=== PATIENT | female | born 1995 | race Caucasian/White ===

== ENCOUNTER 2017-01-28 06:26 | Day surgery (SDC) | payer BC, OTHER ==
[2017-01-26 11:46] LABS: HEMATOCRIT 42.4 % (36.0-47.0); HEMOGLOBIN 14.4 g/dL (12.0-15.5); HGB HCT DIFFERENCE 0.8; MEAN CORPUSCULAR HEMOGLOBIN 30.5 pg (27.0-33.4); MEAN CORPUSCULAR VOLUME 90 fl (80-97); RED BLOOD COUNT 4.73 10^6/uL (3.72-5.28); RED CELL DISTRIBUTION WIDTH 12.7 % (11.5-14.0); WHITE BLOOD COUNT 8.3 10^3/uL (4.0-10.5)
[2017-01-26 11:50] LABS: APPEARANCE,URINE SLIGHTLY-CLOUDY; BILIRUBIN,URINE NEGATIVE (NEGATIVE); GLUCOSE, URINE NEGATIVE (NEGATIVE); KETONES,URINE NEGATIVE (NEGATIVE); LEUKOCYTE ESTERASE,URINE NEGATIVE (NEGATIVE); NITRITE,URINE NEGATIVE (NEGATIVE); PROTEIN,URINE NEGATIVE (NEGATIVE); UROBILINOGEN,URINE NEGATIVE mg/dL (<2.0)
[~2017-01-28 06:26] MED LIST: LACTATED RINGERS 1000 ML IV PRN; LIDOCAINE 0.5% INJ-PF (5 MG/ML) 50 ML SDV SUBCUT PRN
[2017-01-28] MEDS ORDERED: FENTANYL CITRATE INJ/PF 100 MCG/2 ML AMPUL ONE (08:03)
[2017-01-28] MEDS ORDERED: LIDOCAINE 2% INJ-PF (20 MG/ML) 10 ML AMPUL ONE (08:03)
[2017-01-28] MEDS ORDERED: ONDANSETRON HCL INJ/PF 4 MG/2 ML SDV ONE (08:04)
[2017-01-28] MEDS ORDERED: MIDAZOLAM 2 MG/2 ML INJ ONE (08:04)
[2017-01-28] MEDS ORDERED: PROPOFOL INJ 200 MG/20 ML VIAL IV ONE (08:04)
[2017-01-28] MEDS ORDERED: DIPHENHYDRAMINE HCL 50 MG/ML VIAL IV PRN (08:30)
[2017-01-28] MEDS ORDERED: MEPERIDINE HCL/PF INJ 25 MG/1 ML DISP.SYRIN IV PRN (08:30)
[2017-01-28] MEDS ORDERED: MORPHINE SULFATE 10 MG/ML INJ IV PRN (08:30)
[2017-01-28] MEDS ORDERED: FENTANYL CITRATE INJ/PF 100 MCG/2 ML AMPUL IV PRN ×3 (08:30)
[2017-01-28] MEDS ORDERED: ONDANSETRON HCL INJ/PF 4 MG/2 ML SDV IV PRN (08:30)
[2017-01-28] MEDS ORDERED: OXYCODONE-ACETAMINOPHEN 5-325 MG TABLET PO PRN ×4 (08:30→08:53)
[2017-01-28] MEDS ORDERED: PROMETHAZINE HCL INJ 25 MG/1 ML VIAL IV PRN ×2 (08:30)
--- NOTE | 2017-01-28 08:46 | Operative Report ---
Operative Report DATE OF SURGERY: 01/28/17 PREOPERATIVE DIAGNOSIS: Vaginal septum POSTOPERATIVE DIAGNOSIS: Same OPERATION: Excision of vaginal septum SURGEON: ARELIS WESTBROOK ANESTHESIA: GA TISSUE REMOVED OR ALTERED: Vaginal septum COMPLICATIONS: None ESTIMATED BLOOD LOSS: 5 cc INTRAOPERATIVE FINDINGS: Torn vaginal septum attached at 12:00 just below the urethra and at 6:00 approximately 2 cm up into the vagina PROCEDURE: Patient was seen in the office and was unable to tolerate much of an exam because of a torn vaginal septum. She wished to have it removed and wished it to be done in the operating room because of her anxiety and fear of discomfort with the procedure. Patient was taken to the OR and placed in supine position. Anesthesia was induced. She is placed in dorsolithotomy position using Leobardo stirrups. Her perineum and vagina were prepared and draped in sterile fashion. Exam shows a septum attached proximally at 6:00 2 cm up in the vagina and also attached 12: 00 just below the urethra. It has been disrupted recently. In the office of the septum was intact painful from a recent episode of intercourse. The urethra was inspected and borders delineated with a red rubber catheter. The septum at 12:00 was ligated with a 3-0 chromic stitch and the tissue was cut with Metzenbaum scissors. At its attachment at 6:00 in the vagina it was excised with a small scalpel blade and the vaginal mucosa was brought together with a 3-0 chromic stitch. Bleeding was minimal the tissue was sent for specimen all instruments were removed from the vagina and she was taken to recovery room in stable condition.
[2017-01-28] MEDS ORDERED: IBUPROFEN 800 MG TABLET PO PRN (08:53)
[2017-01-28 10:47] VITALS: BP 108/64
== END 2017-01-28 10:20 | disposition home or self-care (01) ==
LOC: OROUT 06:26
PROVIDERS: ATTEND Obstetrics & Gynecology
PROC: 0UBGXZX Excision of Vagina, External Approach, Diagnostic (ICD-10-PCS; principal; 2017-01-28 08:30)
DX: Q52.129 Other and unspecified longitudinal vaginal septum (principal); Z79.3 Long term (current) use of hormonal contraceptives
CPT/HCPCS: 36415; 85027; 81025; 81001; 88305 ×2; 57130; J2250; J3010; J2405; J2704; J3490; 940